=== PATIENT | male | born 1980 | race Caucasian/White ===

== ENCOUNTER 2023-10-02 16:53 | Emergency (ER) | payer MEDICAID, OTHER ==
[~2023-10-02] VITALS: Ht 185.4 cm; Wt 83.9 kg
[2023-10-02 17:15] VITALS: BP_SYST 133; PULSE 98; RESP 17; TEMP 97.4; O2SAT 97
[2023-10-02] MEDS: LIDOCAINE PATCH 5% 1 EA TP ONE (20:10)
[2023-10-02] MEDS ORDERED: IBUP-1969 PO (20:15)
[2023-10-02] MEDS ORDERED: DICL20GE TP (20:15)
[2023-10-02 20:25] VITALS: BP_SYST 124; PULSE 98; RESP 20; TEMP 98.8; O2SAT 98
== END 2023-10-02 20:25 | disposition home or self-care (01) ==
LOC: SED 16:53
DX: L84 Corns and callosities (principal); M79.671 Pain in right foot; I10 Essential (primary) hypertension
CPT/HCPCS: 99282